=== PATIENT | female | born 1990 | race Hispanic/Latino ===

== ENCOUNTER 2017-08-16 12:17 | Emergency (ER) | payer SELFPAY ==
[~2017-08-16] VITALS: Ht 165.1 cm; Wt 139.5 kg
[~2017-08-16 12:17] MED LIST: AMOXICILLIN500 MG OR; AMOXICILLIN500 MG PO; BENADRY2 EX; BENTYL10 MG PO; BIRTH CONTROL PILLS; CIPROFLOXACN500 MG PO; DEPO-PROVER150 MG/ML IM; NAPROSYN500 MG PO; NO; PHENERGAN25 MG/TAB PO; PRILOSEC20 MG/CAP PO; PROTONIX40 MG PO; ULTRAM50 M1 PO; ULTRAM50 MG OR; ULTRAM50 MG PO; [UNRECOGNIZED DRUG - OTHER] IM; [UNRECOGNIZED DRUG - REMARK]
[2017-08-16 12:39] VITALS: BP 143/84
== END 2017-08-16 12:58 | disposition left against medical advice (07) | DRG 951 ==
LOC: ED 12:17 → LWOBS 12:58
DX: Z91.19 Patient's noncompliance with other medical treatment and regimen (principal)

== ENCOUNTER 2018-08-05 09:41 | Emergency (ER) | payer SELFPAY ==
[~2018-08-05] VITALS: Ht 165.1 cm; Wt 132.7 kg
[2018-08-05 11:08] LABS: HEMATOCRIT 42.1 % (37.0-47.0); HEMOGLOBIN 13.5 g/dl (12.0-16.0); IMMATURE GRANULOCYTES 0.5 % (0.0-5.0); MEAN CORPUSCULAR HGB 27.1 pG CALC (26.0-32.0); MEAN CORPUSCULAR HGB CONC 32.1 g/L CALC (32.0-36.0); NEUT# 9.25 thou/uL (2.00-7.15); RED BLOOD COUNT 4.99 mill/uL (4.20-5.60); RED CELL DISTRI WIDTH 12.4 % (11.5-15.5)
[2018-08-05 11:11] LABS: URINE BILIRUBIN - DIPSTICK NEGATIVE (NEGATIVE); URINE BLOOD DIPSTICK TRACE-LYSED (NEGATIVE); URINE COLOR YELLOW; URINE GLUCOSE - DIPSTICK NEGATIVE (NEGATIVE); URINE KETONE NEGATIVE (NEGATIVE); URINE LEUK ESTERASE NEGATIVE (NEGATIVE); URINE NITRITE - DIPSTICK NEGATIVE (Negative); URINE PROTEIN - DIPSTICK NEGATIVE (NEG-TRACE); URINE UROBILINOGEN - DIPSTICK 0.2 E.U./dL (0.2)
[2018-08-05 11:11] LABS: MEAN CELL VOLUME 84.4 fL CALC (80.0-100.0)
[2018-08-05 11:23] LABS: ALBUMIN 4.5 g/dL (3.2-5.0); ALKALINE PHOSPHATASE 119 u/l (38-126); ANION GAP 17 (6-22 (CALC)); BILIRUBIN, TOTAL 0.7 mg/dL (0.0-1.4); BUN 12 mg/dL (7-17); BUN/CREATININE RATIO 20 (12-20 (CALC)); CARBON DIOXIDE 24 mmol/l (22-30); CHLORIDE 103 mmol/l (95-108); CREATININE 0.6 mg/dL (0.5-1.0); GFR > 60 ML/MIN (>=60 (CALC)); GFR FOR AFR.AMER. > 60 ML/MIN (>=60 (CALC)); LIPASE 46 u/l (23-300); POTASSIUM 4.4 mmol/l (3.5-5.1); SGOT/AST 26 u/l (14-36); SODIUM 139 mmol/l (137-146); TOTAL PROTEIN 8.4 g/dL (6.3-8.2)
[2018-08-05] MEDS ORDERED: RANITIDINE150 M1 PO (13:16)
[2018-08-05 13:29] VITALS: BP 132/80
== END 2018-08-05 13:48 | disposition home or self-care (01) | DRG 392 ==
LOC: ED 09:41
PROVIDERS: Family Medicine
DX: K52.9 Noninfective gastroenteritis and colitis, unspecified (principal); E11.9 Type 2 diabetes mellitus without complications
CPT/HCPCS: Q9967

== ENCOUNTER 2018-11-17 08:51 | Emergency (ER) | payer SELFPAY ==
[~2018-11-17] VITALS: Ht 165.1 cm; Wt 140.0 kg
[~2018-11-17 08:51] MED LIST changes: +RANITIDINE150 M1 PO
[2018-11-17] MEDS ORDERED: MOTRIN400 MG PO (09:07)
[2018-11-17] MEDS ORDERED: CYCLOBENZAPR5 MG PO (09:07)
[2018-11-17] MEDS ORDERED: METFORMIN500 MG PO (09:13)
[2018-11-17 09:35] VITALS: BP 152/77
== END 2018-11-17 09:35 | disposition home or self-care (01) | DRG 563 ==
LOC: ED 08:51
DX: S39.012A Strain of muscle, fascia and tendon of lower back, initial encounter (principal); S29.012A Strain of muscle and tendon of back wall of thorax, initial encounter; E11.9 Type 2 diabetes mellitus without complications; X50.0XXA Overexertion from strenuous movement or load, initial encounter; Y93.89 Activity, other specified

== ENCOUNTER 2018-11-21 00:12 | Emergency (ER) | payer SELFPAY ==
[~2018-11-21] VITALS: Ht 165.1 cm; Wt 134.0 kg
[~2018-11-21 00:12] MED LIST changes: +CYCLOBENZAPR5 MG PO; +METFORMIN500 MG PO; +MOTRIN400 MG PO
[2018-11-21 01:48] LABS: ALBUMIN 4.2 g/dL (3.2-5.0); ALKALINE PHOSPHATASE 161 u/l (38-126); ANION GAP 15 (6-22 (CALC)); BUN 13 mg/dL (7-17); BUN/CREATININE RATIO 21 (12-20 (CALC)); CARBON DIOXIDE 27 mmol/l (22-30); CHLORIDE 100 mmol/l (95-108); CREATININE 0.6 mg/dL (0.5-1.0); GFR > 60 ML/MIN (>=60 (CALC)); GFR FOR AFR.AMER. > 60 ML/MIN (>=60 (CALC)); POTASSIUM 4.2 mmol/l (3.5-5.1); SGOT/AST 23 u/l (14-36); SODIUM 138 mmol/l (137-146); TOTAL PROTEIN 7.7 g/dL (6.3-8.2)
[2018-11-21 01:54] LABS: BILIRUBIN, TOTAL 0.2 mg/dL (0.0-1.4)
[2018-11-21 01:57] LABS: HEMATOCRIT 38.5 % (37.0-47.0); HEMOGLOBIN 12.7 g/dl (12.0-16.0); IMMATURE GRANULOCYTES 0.6 % (0.0-5.0); MEAN CELL VOLUME 80.4 fL CALC (80.0-100.0); MEAN CORPUSCULAR HGB 26.5 pG CALC (26.0-32.0); NEUT# 9.48 thou/uL (2.00-7.15); RED BLOOD COUNT 4.79 mill/uL (4.20-5.60); RED CELL DISTRI WIDTH 12.9 % (11.5-15.5)
[2018-11-21 02:02] LABS: URINE BILIRUBIN - DIPSTICK NEGATIVE (NEGATIVE); URINE BLOOD DIPSTICK NEGATIVE (NEGATIVE); URINE COLOR YELLOW; URINE GLUCOSE - DIPSTICK >=1000 mg/dL (NEGATIVE); URINE KETONE NEGATIVE (NEGATIVE); URINE LEUK ESTERASE NEGATIVE (NEGATIVE); URINE NITRITE - DIPSTICK NEGATIVE (Negative); URINE PROTEIN - DIPSTICK NEGATIVE (NEG-TRACE); URINE SPECIFIC GRAVITY <=1.005; URINE UROBILINOGEN - DIPSTICK 0.2 E.U./dL (0.2)
[2018-11-21] MEDS ORDERED: METFORMIN500 MG PO (03:05)
[2018-11-21 03:12] VITALS: BP 158/79
== END 2018-11-21 03:23 | disposition home or self-care (01) | DRG 639 ==
LOC: ED 00:12
PROVIDERS: Emergency Medicine
DX: E11.65 Type 2 diabetes mellitus with hyperglycemia (principal); T38.3X6A Underdosing of insulin and oral hypoglycemic [antidiabetic] drugs, initial encounter; Z79.84 Long term (current) use of oral hypoglycemic drugs

== ENCOUNTER 2019-10-29 11:46 | Emergency (ER) | payer OTHER ==
[2019-10-29 13:30] VITALS: BP 143/82
== END 2019-10-29 13:30 | disposition home or self-care (01) | DRG 605 ==
LOC: ED 11:46
DX: S80.01XA Contusion of right knee, initial encounter (principal); S80.02XA Contusion of left knee, initial encounter; E11.9 Type 2 diabetes mellitus without complications; V89.2XXA Person injured in unspecified motor-vehicle accident, traffic, initial encounter; Z79.84 Long term (current) use of oral hypoglycemic drugs

== ENCOUNTER 2020-01-25 20:14 | Emergency (ER) | payer SELFPAY ==
[~2020-01-25] VITALS: Ht 165.1 cm; Wt 100.0 kg
[2020-01-25] MEDS ORDERED: METFORMIN500 M2 PO (20:31)
[2020-01-25] MEDS ORDERED: OLANZAPINE5 MG PO (21:13)
[2020-01-25] MEDS ORDERED: VENLAFAXINE HC150 MG PO (21:13)
[2020-01-25 21:35] VITALS: BP 148/83
== END 2020-01-25 21:35 | disposition home or self-care (01) | DRG 563 ==
LOC: ED 20:14
DX: S93.401A Sprain of unspecified ligament of right ankle, initial encounter (principal); E11.9 Type 2 diabetes mellitus without complications; X50.0XXA Overexertion from strenuous movement or load, initial encounter; Y92.008 Other place in unspecified non-institutional (private) residence as the place of occurrence of the external cause; Z79.84 Long term (current) use of oral hypoglycemic drugs

== ENCOUNTER 2020-03-14 09:24 | Emergency (ER) | payer SELFPAY ==
[~2020-03-14] VITALS: Ht 165.1 cm; Wt 125.0 kg
[~2020-03-14 09:24] MED LIST changes: +METFORMIN500 M2 PO; +OLANZAPINE5 MG PO; +VENLAFAXINE HC150 MG PO
[2020-03-14 09:59] LABS: HEMATOCRIT 43.9 % (37.0-47.0); HEMOGLOBIN 14.7 g/dl (12.0-16.0); IMMATURE GRANULOCYTES 0.6 % (0.0-5.0); MEAN CELL VOLUME 80.4 fL CALC (80.0-100.0); MEAN CORPUSCULAR HGB 26.9 pG CALC (26.0-32.0); MEAN CORPUSCULAR HGB CONC 33.5 g/dL CAL (32.0-36.0); NEUT# 8.7 thou/uL (2.00-7.15); RED BLOOD COUNT 5.46 mill/uL (4.20-5.60)
[2020-03-14 10:00] LABS: URINE BILIRUBIN - DIPSTICK NEGATIVE (NEGATIVE); URINE BLOOD DIPSTICK NEGATIVE (NEGATIVE); URINE COLOR YELLOW; URINE GLUCOSE - DIPSTICK >=1000 mg/dL (NEGATIVE); URINE KETONE NEGATIVE (NEGATIVE); URINE LEUK ESTERASE NEGATIVE (NEGATIVE); URINE NITRITE - DIPSTICK NEGATIVE (Negative); URINE PROTEIN - DIPSTICK NEGATIVE (NEG-TRACE); URINE UROBILINOGEN - DIPSTICK 0.2 E.U./dL (0.2)
[2020-03-14 10:18] LABS: ALBUMIN 4.4 g/dL (3.2-5.0); ALKALINE PHOSPHATASE 192 u/l (38-126); AMYLASE 40 u/l (30-110); ANION GAP 15 (6-22 (CALC)); BUN 13 mg/dL (7-17); BUN/CREATININE RATIO 27 (12-20 (CALC)); CARBON DIOXIDE 25 mmol/l (22-30); CHLORIDE 97 mmol/l (95-108); CREATININE 0.5 mg/dL (0.5-1.0); GFR > 60 ML/MIN (>=60 (CALC)); GFR FOR AFR.AMER. > 60 ML/MIN (>=60 (CALC)); LIPASE 88 u/l (23-300); POTASSIUM 4.5 mmol/l (3.5-5.1); SODIUM 133 mmol/l (137-146); TOTAL PROTEIN 8.3 g/dL (6.3-8.2)
[2020-03-14 10:32] LABS: BILIRUBIN, TOTAL 0.5 mg/dL (0.0-1.4); SGOT/AST 57 u/l (14-36)
[2020-03-14 10:35] LABS: BETA-HCG, QUANT(RESULT NUMBER) <2 mIU/mL
[2020-03-14] MEDS ORDERED: ZOFRAN4 MG/TAB PO (12:18)
[2020-03-14] MEDS ORDERED: PROTONIX40 M2 PO (12:18)
[2020-03-14 12:45] VITALS: BP 129/83
== END 2020-03-14 12:45 | disposition home or self-care (01) | DRG 392 ==
LOC: ED 09:24
DX: R11.2 Nausea with vomiting, unspecified (principal); R19.7 Diarrhea, unspecified; E11.65 Type 2 diabetes mellitus with hyperglycemia; K21.9 Gastro-esophageal reflux disease without esophagitis; F32.9 Major depressive disorder, single episode, unspecified; T38.3X6A Underdosing of insulin and oral hypoglycemic [antidiabetic] drugs, initial encounter; Z91.128 Patient's intentional underdosing of medication regimen for other reason; Z79.84 Long term (current) use of oral hypoglycemic drugs
CPT/HCPCS: S0164

== ENCOUNTER 2020-12-11 10:33 | Emergency (ER) | payer SELFPAY ==
[~2020-12-11] VITALS: Ht 165.1 cm; Wt 130.0 kg
[~2020-12-11 10:33] MED LIST changes: +PROTONIX40 M2 PO; +ZOFRAN4 MG/TAB PO
[2020-12-11 11:56] LABS: HEMATOCRIT 42.5 % (37.0-47.0); HEMOGLOBIN 14.6 g/dl (12.0-16.0); IMMATURE GRANULOCYTES 0.6 % (0.0-5.0); MEAN CELL VOLUME 80.2 fL CALC (80.0-100.0); MEAN CORPUSCULAR HGB 27.5 pG CALC (26.0-32.0); MEAN CORPUSCULAR HGB CONC 34.4 g/dL CAL (32.0-36.0); NEUT# 7.07 thou/uL (2.00-7.15); RED BLOOD COUNT 5.3 mill/uL (4.20-5.60); RED CELL DISTRI WIDTH 12.1 % (11.5-15.5)
[2020-12-11 11:59] LABS: URINE BILIRUBIN - DIPSTICK NEGATIVE (NEGATIVE); URINE COLOR YELLOW; URINE GLUCOSE - DIPSTICK 250 mg/dL (NEGATIVE); URINE KETONE NEGATIVE (NEGATIVE); URINE LEUK ESTERASE NEGATIVE (NEGATIVE); URINE PROTEIN - DIPSTICK NEGATIVE (NEG-TRACE); URINE SPECIFIC GRAVITY <=1.005; URINE UROBILINOGEN - DIPSTICK 0.2 E.U./dL (0.2)
[2020-12-11 12:03] LABS: URINE BLOOD DIPSTICK TRACE (NEGATIVE); URINE NITRITE - DIPSTICK NEGATIVE (Negative)
[2020-12-11 12:08] LABS: ALBUMIN 4.1 g/dL (3.2-5.0); ALKALINE PHOSPHATASE 139 u/l (38-126); ANION GAP 14 (6-22 (CALC)); BUN 8 mg/dL (7-17); BUN/CREATININE RATIO 18 (12-20 (CALC)); CARBON DIOXIDE 27 mmol/l (22-30); CHLORIDE 99 mmol/l (95-108); CREATININE 0.5 mg/dL (0.5-1.0); GFR > 60 ML/MIN (>=60 (CALC)); GFR FOR AFR.AMER. > 60 ML/MIN (>=60 (CALC)); LIPASE 47 u/l (23-300); POTASSIUM 4.1 mmol/l (3.5-5.1); SGOT/AST 83 u/l (14-36); SODIUM 137 mmol/l (137-146); TOTAL PROTEIN 7.8 g/dL (6.3-8.2)
[2020-12-11 12:10] LABS: BILIRUBIN, TOTAL 0.8 mg/dL (0.0-1.4)
[2020-12-11] MEDS ORDERED: METFORMIN500 M2 PO ×2 (12:45→14:50)
[2020-12-11] MEDS ORDERED: CODEINE/GUAIFEN1 SOL PO ×2 (12:45→14:50)
[2020-12-11] MEDS ORDERED: ZPAK PO ×2 (12:45→14:50)
[2020-12-11 13:05] VITALS: BP 134/77
[2020-12-11] MEDS ORDERED: ZOFRAN4 MG/TAB PO (14:50)
[2020-12-11] MEDS ORDERED: PROTONIX40 M2 PO (14:50)
== END 2020-12-11 13:10 | disposition home or self-care (01) | DRG 639 ==
LOC: ED 10:33
DX: E11.65 Type 2 diabetes mellitus with hyperglycemia (principal); J06.9 Acute upper respiratory infection, unspecified; R74.8 Abnormal levels of other serum enzymes; F32.9 Major depressive disorder, single episode, unspecified; K21.9 Gastro-esophageal reflux disease without esophagitis; T38.3X6A Underdosing of insulin and oral hypoglycemic [antidiabetic] drugs, initial encounter; Z91.128 Patient's intentional underdosing of medication regimen for other reason; Z79.84 Long term (current) use of oral hypoglycemic drugs; Z20.822 Contact with and (suspected) exposure to COVID-19